=== PATIENT | female | born 1990 | race Caucasian/White ===

== ENCOUNTER 2024-08-04 05:28 | Inpatient (IN) ==
--- NOTE | 2024-07-25 11:12 | Anesthesiology Consultation ---
Date of Service July 25, 2024 Assessment & Plan (1) Encounter for pre-operative examination: - Per firmware manager on 07/25/24: No known infectious disease contacts, current infectious disease symptoms in past 10 days or COVID positive test result in the past 30 days. Chart Review Chart Review: division head initiated History Surgery Operation Date: 08/04/24 07:30 Proposed Procedures p Section (Delivery of Baby Through Abdominal Incision) - Jason Menjivar MD Operation Date: 08/08/24 07:30 Proposed Procedures p Section (Delivery of Baby Through Abdominal Incision) - Sravanthi Cuevas DO Height/Weight Height: 5 ft 1 in Weight: 72.575 kg Allergies Allergy/AdvReac Type Severity Reaction Status Date / Time No Known Allergies Allergy Verified 07/25/24 10:45 Medications Home Medications Medication Instructions Recorded Confirmed Last Taken vit 168-iron 27 mg-folic 1 cap PO QAM 08/18/23 07/25/24 09/30/23 08:00 acid 800 mcg-omega3 235 mg capsule (One-A-Day -1) Past Medical History Medical History Heartburn during History of cardiac murmur as a child "It went away - no problems with it" History of chicken pox History of hyperlipidemia Snores Past Family History Family History Grandfather (Paternal) Heart disease Mother Hx of ovarian cyst Thyroid disease Grandmother Hx of ovarian cyst Denies family history of Ovarian cancer Breast cancer Colorectal cancer Past Surgical History Surgical History History of D&C D&E x2 Hx of section PONV (postoperative nausea and vomiting) S/P ACL repair Left S/P wisdom tooth extraction Social History Smoking Status: Never smoker Do You Dip or Chew Tobacco: No Hx Alcohol Use: No Hx Substance Use: No substance use type: does not use
[2024-08-04] MEDS: LACTATED RINGER'S 1,000 ML IV SCH (05:59)
[2024-08-04] MEDS ORDERED: OXYTOCIN 10 UNITS/ML VIAL ONE (06:16)
[2024-08-04] MEDS ORDERED: PHENYLEPHRINE HCL 25 MG/250 ML NSS IV ONE (06:16)
[2024-08-04] MEDS ORDERED: KETOROLAC 30 MG/ML VIAL ONE (06:16)
[2024-08-04] MEDS ORDERED: MoRPHine SULFATE PF 1 MG/ML 10 ML AMP/VIAL ONE (06:16)
[2024-08-04] MEDS ORDERED: fentaNYL citrate PF 100 MCG/2 ML VIAL ONE (06:16)
[2024-08-04] MEDS ORDERED: ONDANSETRON INJ 2 MG/ML 2 ML VIAL ONE (06:16)
[2024-08-04] MEDS: ACETAMINOPHEN 500 MG TAB PO SCH (06:21)
[2024-08-04 06:24] LABS: Hematocrit (blood only) 37.3 % (37.0-47.0); Hemoglobin 12.8 g/dl (12.0-16.0); Mean Corpuscular Hemoglobin 29.6 pg (25.0-34.0); Mean Corpuscular Hgb Conc 34.3 g/dL (32.0-36.0); Mean Corpuscular Volume 86.3 fL (80.0-100.0); Mean Platelet Volume 10.2 fL (9.4-12.4); Platelet Count 361 K/uL (130-400); RDW Coefficient of Variation 12.8 % (11.5-14.5); RDW Standard Deviation 40.1 fL (36.4-46.3); Red Blood Count 4.32 M/uL (4.20-5.40)
[2024-08-04] MEDS ORDERED: LACTATED RINGER'S 1,000 ML IV SCH ×2 (06:45→09:26)
--- NOTE | 2024-08-04 07:27 | History & Physical Report ---
Date of Service August 04, 2024 Assessment & Plan (1) Previous delivery affecting , antepartum: Plan: 33yo at 39w 6d presents for scheduled repeat with breech presentation. (2) Supervision of normal intrauterine in multigravida: Admission and Anticipated Discharge Date Admission Date: August 04, 2024 History of Present Illness Primary Care Provider: NO PCP 33yo at 39w 6d presents for scheduled repeat with breech presentation. Prior , LTCS / we have record Desires C/S SCHEDULED FOR 08/08/[address] EMILY HORNE C/S RESCHEDULED TO 08/04/[address] CARPENTER DUE TO BREECH OB Labs: Blood Type O Positive 01/28/24 Antibody Screen NEGATIVE 01/28/24 Hgb 12.0 g/dl (12.0-16.0) 05/16/24 Hct 36.4 % (37.0-47.0) L 05/16/24 MCV 89.0 fL (80.0-100.0) 01/28/24 Plt Count 398 K/uL (130-400) 01/28/24 Rubella IgG Antibody Immune (Immune) 01/28/24 RPR Nonreactive (Nonreactive) 01/28/24 Hep Bs Antigen NON-REACTIVE (NON-REACTIVE) 01/28/24 Hepatitis C Ab (EIA) NON-REACTIVE (NON-REACTIVE) 01/28/24 HIV (1&2) Ag & Ab Conf NON-REACTIVE (NON-REACTIVE) 01/28/24 Glucose 1 Hr 50 gm 100 mg/dl (70-130) 05/16/24 OB Optional Labs: Chlamydia trachomatis RNA Not Detected (NotDetected) 01/28/24 Neisseria gonorrhoeae RNA Not Detected (NotDetected) 01/28/24 Labs Reviewed: declined genetics and carrier testing--[facility] declined afp--[facility] Allergies Allergy/AdvReac Type Severity Reaction Status Date / Time No Known Allergies Allergy Verified 08/03/24 09:08 Home Medications Medication Instructions Recorded Confirmed Type vit 168-iron 27 mg-folic 1 cap PO QAM 08/18/23 08/04/24 History acid 800 mcg-omega3 235 mg capsule (One-A-Day -1) Patient History Medical History Heartburn during History of cardiac murmur as a child "It went away - no problems with it" History of chicken pox History of hyperlipidemia Snores Surgical History History of D&C D&E x2 Hx of section PONV (postoperative nausea and vomiting) S/P ACL repair Left S/P wisdom tooth extraction Family History Grandfather (Paternal) Heart disease Mother Hx of ovarian cyst Thyroid disease Grandmother Hx of ovarian cyst Denies family history of Ovarian cancer Breast cancer Colorectal cancer Social History (Updated 01/27/24 @ 10:51 by Raven Garcia) Smoking Status: Never smoker Second Hand Exposure: No; Do You Dip or Chew Tobacco: No; Tobacco Cessation Education Requested by Patient: No Hx Alcohol Use: No Hx Substance Use: No Preferred Language: German Communication Ability: Effective Assistant Corporate Controller Required: No Beliefs That Will Affect Care: None marital status: marital status details: Siddhartha Toledo(34) [phone] Current Living Situation: Family Current Living Situation Comment: lives with spouse, daughter, 1 cat, spouse to change litter. current occupational status: employed current occupation: [employer] Other Information That Helps Us Care for You: No Feels Safe at Home: Yes Safety Concerns: Feels Safe At This Time Assistive Devices: None Physical Exam Genitourinary: OB Exam Abdomen: + breech OB Exam Monitor Tracing: + external FHT monitor used, + external uterine monitor used, + category I and + normal FHT variability; no early decelerations present, no late decelerations present and no variable decelerations Results & Data Vital Signs (Past 12 Hours) Vital Signs Temp Pulse Resp BP 08/04/24 07:07 36.4 C L 20 08/04/24 07:02 68 117/64 08/04/24 05:54 81 108/72 08/04/24 05:51 36.8 C 08/04/24 05:43 16 Coding Level of Care Code None Diagnoses Previous delivery affecting , antepartum O34.219 Supervision of normal intrauterine in multigravida in third trimester Z34.83 Trimester: third trimester (2) Supervision of normal intrauterine in multigravida Trimester: third trimester Qualified Code(s): Z34.83 - Encounter for supervision of other normal , third trimester
[2024-08-04] MEDS: ceFAZolin 2000MG 2,000 MG/15 ML SYR IV SCH (07:40)
[2024-08-04] MEDS: CITRIC ACID/SODIUM CITRATE 15 ML UDC PO SCH (07:40)
[2024-08-04] MEDS ORDERED: ePHEDrine sulfate 50 MG/5 ML SYR ONE (08:42)
[2024-08-04] MEDS ORDERED: oxyCODONE HCL IR 5 MG TAB (IMMEDIATE RELEASE) PO PRN (09:26)
[2024-08-04] MEDS ORDERED: HYDROCORTISONE ACETATE 25 MG SUPP PR PRN (09:26)
[2024-08-04] MEDS ORDERED: SENNA 8.6 MG TAB PO PRN (09:26)
[2024-08-04] MEDS ORDERED: OXYTOCIN 30 UNITS/LR 1,000 ML IV SCH (09:26)
[2024-08-04] MEDS ORDERED: DIPHTHER/TETAN/PERTUS Vaccine (Tdap, Adol/Adult) 0.5mL IM ONE (09:26)
[2024-08-04] MEDS ORDERED: ONDANSETRON INJ 2 MG/ML 2 ML VIAL IV PRN ×2 (09:26→11:51)
[2024-08-04] MEDS ORDERED: HYDROmorphone INJ 0.5 MG/0.5 ML SYR IV PRN ×2 (09:26→11:51)
[2024-08-04] MEDS ORDERED: diphenhydrAMINE 50 MG/ML VIAL IV PRN ×2 (09:26→11:51)
[2024-08-04] MEDS ORDERED: PROMETHAZINE 12.5 MG/50.5 ML BAG IV PRN (09:26)
[2024-08-04] MEDS ORDERED: CALCIUM CARBONATE 500 MG CHEWABLE TAB PO PRN (09:26)
[2024-08-04] MEDS ORDERED: BENZOCAINE 20% SPRY 85 APPLN/85 GM CAN EXT PRN (09:26)
[2024-08-04] MEDS ORDERED: MAGNESIUM HYDROXIDE SUSP 30 ML UDC PO PRN (09:26)
[2024-08-04] MEDS ORDERED: diphenhydrAMINE Capsule 25 MG CAP PO PRN (09:26)
[2024-08-04] MEDS ORDERED: LACTATED RINGER'S 500 ML IV PRN (11:51)
[2024-08-04] MEDS ORDERED: PROMETHAZINE 6.25 MG/50.25 ML BAG IV PRN (11:51)
[2024-08-04] MEDS ORDERED: NALBUPHINE HCL INJ 10 MG/ML AMP IV PRN (11:51)
[2024-08-04] MEDS ORDERED: NALOXONE HCL 0.08 MG in SYRINGE 1.8 ML IV PRN (11:51)
[2024-08-04] MEDS ORDERED: NALOXONE HCL 0.4 MG/1 ML VIAL/CARP IV PRN (11:51)
[2024-08-04] MEDS ORDERED: ACETAMINOPHEN 1,000 MG/100 ML VIAL IV PRN (11:51)
[2024-08-04] MEDS ORDERED: ePHEDrine sulfate 50 MG/ML AMP IV PRN (11:51)
[2024-08-04] MEDS ORDERED: KETOROLAC 30 MG/ML VIAL IV PRN (11:51)
[2024-08-04] MEDS ORDERED: NALOXONE HCL 1 MG in SODIUM CHLORIDE 0.9% 1,000 ML IV PRN (11:51)
--- NOTE | 2024-08-04 11:51 | Anesthesiology Progress Note ---
Date of Service August 04, 2024 Anesthesia Post Procedure Vital Signs Vital Signs: Temp Pulse Resp BP Pulse Ox 08/04/24 11:40 77 116/59 L 08/04/24 11:35 78 97 08/04/24 11:30 67 96 08/04/24 11:25 83 98 08/04/24 11:20 79 98 08/04/24 11:15 82 98 08/04/24 11:10 81 98 08/04/24 11:09 83 110/61 08/04/24 11:05 71 98 08/04/24 11:00 77 99 08/04/24 10:59 71 108/61 08/04/24 10:55 66 98 08/04/24 10:50 72 99 08/04/24 10:49 65 111/62 08/04/24 10:45 66 97 08/04/24 10:40 70 98 08/04/24 10:39 67 107/64 08/04/24 10:35 80 98 08/04/24 10:30 20 08/04/24 10:30 73 98 08/04/24 10:29 67 100/66 08/04/24 10:25 68 98 08/04/24 10:20 99 08/04/24 10:20 69 08/04/24 10:20 66 105/77 08/04/24 10:15 73 99 08/04/24 10:10 98 08/04/24 10:10 71 08/04/24 10:10 74 98/57 L 08/04/24 10:05 66 98 08/04/24 10:00 97.5 F L 20 08/04/24 10:00 97.5 F L 20 08/04/24 10:00 71 98 08/04/24 09:59 68 99/57 L 08/04/24 09:55 74 99 08/04/24 09:50 20 08/04/24 09:50 68 97 08/04/24 09:49 72 102/60 08/04/24 09:45 61 97 08/04/24 09:40 20 08/04/24 09:40 98 08/04/24 09:40 67 08/04/24 09:40 66 106/59 L 08/04/24 09:35 64 98 08/04/24 09:30 16 08/04/24 09:30 72 99 08/04/24 09:29 59 L 125/59 L 08/04/24 09:25 69 98 08/04/24 09:20 20 08/04/24 09:20 62 126/62 99 08/04/24 09:15 81 100 08/04/24 09:10 20 08/04/24 09:10 74 99 08/04/24 09:05 95 H 99 08/04/24 09:00 97.5 F L 08/04/24 09:00 58 L 110/59 L 08/04/24 07:07 97.5 F L 08/04/24 07:02 68 117/64 08/04/24 05:54 81 108/72 08/04/24 05:51 98.2 F 08/04/24 05:43 16 Pain Intensity Abdomen: Pain Intensity: 0 Transfer of Care Handoff Completed per policy Notes Mental Status: alert / awake / arousable and participated in evaluation Patient Amnestic to Procedure: Yes Nausea / Vomiting: adequately controlled Pain: adequately controlled Airway Patency, RR, SpO2: stable & adequate BP & HR: stable & adequate Hydration State: stable & adequate Neuraxial Anesthesia: was administered and sensory block is resolving Anesthetic Complications: no major complications apparent and Pt Satisfied with anesthetic care
[2024-08-04] MEDS ORDERED: MoRPHine SULFATE PF 1 MG/ML 10 ML AMP/VIAL INT SPINAL ONE (11:55)
[2024-08-04] MEDS ORDERED: SODIUM CHLORIDE 0.9% 1,000 ML IV SCH (12:00)
[2024-08-04] MEDS ORDERED: NO NARCOTICS OR SEDATIVES SCH (12:00)
[2024-08-04] MEDS ORDERED: DC INTRASPINAL MORPHINE SCH (12:00)
--- NOTE | 2024-08-04 13:05 | Operative Report ---
Post Operative Report Pre & Post Diagnosis Operation Date: 08/08/24 07:30 Pre-op diagnosis: Term , prior section, breech presentation Postop diagnosis: Term , prior section, breech presentation, status post procedure I identified the patient and participated in the time-out.: Yes Procedure Operation Date: 08/08/24 07:30 Repeat section Surgeon Jason Menjivar MD Cell Support Operator Dr. Shelley Wan Quantitative Blood Loss (QBL) See chart Findings Consistent with Post-Op Diagnosis Specimens None Description of Procedure Patient was taken the operating room after consent was ensured. Upon presentation she was properly identified. Anesthesia obtained and patient prepped and draped in normal sterile fashion. Preprocedural timeout was performed. A Pfannenstiel incision was made with a knife. This was carried down to underlying fascia with the Bovie and blunt dissection. The fascia was nicked at the midline with a knife and extended laterally with pickups and Patrick scissors. Abdominal cavity was entered bluntly and placed on stretch to provide adequate room for delivery. A low transverse uterine incision was made with a knife. Head of the was delivered through the hysterotomy followed by body and shoulders. noted to be vigorous at time of delivery and a 30 second delayed cord clamping was initiated after which the cord was double clamped and cut. Baby taken to the waiting nursery staff. Attention was turned to delivery of the placenta which delivered intact with three-vessel cord gentle cord traction. Uterus was exteriorized and several passes were made to remove any remaining membranes with a dry lap. There is noted to be an upward left-sided extension. Hysterotomy was reapproximated with 0 Vicryl continuous running lock stitch with a second imbricating layer performed. Several [id number] stitches were needed to achieve hemostasis. There is noted to be a small left-sided hematoma originating from the hysterotomy. This was watched for approximately 15 to 20 minutes total and was noted to be stable. Posterior cul-de-sac cleaned of clots and debris's. Uterus returned maternal abdomen and right left paracolic gutters cleaned of clots and debris's. Hysterotomy remained hemostatic and hematoma unchanged. Subcutaneous fascia and muscle layers inspected noted be hemostatic. Fascia was reapproximated 0 Vicryl continuous running stitch. Subcutaneous layer reapproximated 2 layers using 2-0 plain. Skin reapproximated with 3-0 Vicryl and continuous subcuticular stitch. Dermabond placed on top. Both mother and in stable condition at the completion of the case. Needle sponge and instrument counts correct at the completion of the case I attest to the content of the Intraoperative Record and any orders documented therein. Any exceptions are noted below. OB Procedure Charges 24401
[2024-08-04] MEDS: OXYTOCIN 20 UNITS/LR 1,002 ML IV SCH (13:40)
[2024-08-04] MEDS: ACETAMINOPHEN 325 MG TAB PO SCH (13:40)
[2024-08-04] MEDS: IBUPROFEN 600 MG TAB PO SCH (13:41)
[2024-08-04] MEDS: DOCUSATE SODIUM 100 MG CAP PO SCH (20:22)
[2024-08-04] MEDS: SIMETHICONE 80 MG CHEW PO SCH (20:22)
[2024-08-05 03:37] VITALS: RESP 16
[2024-08-05 07:25] LABS: Basophils # (auto) 0.05 K/uL (0.00-0.20); Basophils % (auto) 0.4 %; Eosinophils # (auto) 0.07 K/uL (0.00-0.50); Eosinophils % (auto) 0.5 %; Hematocrit (blood only) 30.4 % (37.0-47.0); Hemoglobin 10.1 g/dl (12.0-16.0); Immature Granulocytes # (auto) 0.16 K/uL (0.01-0.20); Immature Granulocytes % (auto) 1.1 %; Lymphocytes # (auto) 1.81 K/uL (1.20-3.40); Lymphocytes % (auto) 12.8 %; Mean Corpuscular Hemoglobin 29.5 pg (25.0-34.0); Mean Corpuscular Hgb Conc 33.2 g/dL (32.0-36.0); Mean Corpuscular Volume 88.9 fL (80.0-100.0); Mean Platelet Volume 10.1 fL (9.4-12.4); Monocytes % (auto) 6.4 %; Neutrophils # (auto) 11.15 K/uL (1.40-6.50); Neutrophils % (auto) 78.8 %; Platelet Count 316 K/uL (130-400); RDW Coefficient of Variation 13.4 % (11.5-14.5); RDW Standard Deviation 43.6 fL (36.4-46.3); Red Blood Count 3.42 M/uL (4.20-5.40); White Blood Count 14.14 K/ul (4.8-10.8)
--- NOTE | 2024-08-05 07:36 | Obstetrical Progress Note ---
Date of Service August 05, 2024 Assessment & Plan (1) delivery delivered: Plan: 1st POD foll [facility] for Breech with previous No active complain Vitlas: Stable( P: 78, BP: 93/60, T: AF) Encourage ambulation. Encourage feeding Discharge tomorrow Admission and Anticipated Discharge Date Admission Date: August 04, 2024 Supervising Physician Co-Signing Physician Notes Patient seen with resident and agree with the above findings and plan. Routine care Subjective 1st POD foll [facility]CS for Breech with previous No active complain Ambulation : Bathroom Gas: Not passed Bottlr Feed Mild pain Lochia: Moderate Review of Systems Review of Systems: As per HPI Physical Exam Physical Exam: General: Alert and oriented. No acute distress. CV: Regular rate and rhythm. No murmurs. Respiratory: CTA bilaterally. No rhonchi, wheezes, or crackles. No increased work of breathing. Abdomen: Positive bowel sounds. Soft, nontender, and nondistended. Uterus: Fundus firm and palpable few cm below umbilicus. Surgical scar clean and healing well. Bandage removed Lower extremities: No LE edema. No deep calf pain. Aemna's negative bilaterally. Results & Data Vital Signs (Past 12 Hours) Vital Signs Temp Pulse Resp BP Pulse Ox O2 Del Method 08/05/24 04:00 16 95 08/05/24 03:35 16 08/05/24 03:35 36.6 C 78 16 93/60 L 96 Room Air 08/05/24 02:04 19 96 08/05/24 01:00 16 96 08/05/24 00:10 16 96 08/04/24 23:12 16 96 08/04/24 23:12 36.6 C 75 16 105/65 96 Room Air 08/04/24 22:04 16 96 08/04/24 21:11 18 96 08/04/24 19:40 16 96 08/04/24 19:40 36.6 C 73 16 109/69 97 Room Air Resident Activity Tracking Resident Involvement: Resident Care Provided Care Provided: OB Delivery
[2024-08-05] MEDS: FERROUS SULFATE 325 MG TAB PO SCH (08:25)
[2024-08-05] MEDS: PRENATAL VITAMIN 1 TAB PO SCH (08:25)
[2024-08-05] MEDS: bisacodyL 5 MG TABEC PO SCH (20:26)
[2024-08-05 23:00] VITALS: O2SAT 97
--- NOTE | 2024-08-06 07:02 | Obstetrical Progress Note ---
Date of Service August 06, 2024 Assessment & Plan (1) delivery delivered: Plan: 2nd POD foll [facility] for Breech with previous No active complain Vitlas: Stable Discharge today Admission and Anticipated Discharge Date Admission Date: August 04, 2024 Supervising Physician Co-Signing Physician Notes Resident Physician Supervision Note: I interviewed and examined the patient. Discussed with Dr. Law and agree with findings and plan as documented in the note. Any exceptions or clarifications are listed here: [ ] Documented By: Gabrielle Alarocn MD, FACOG Subjective 2nd POD foll [facility] for Breech with previous No active complain Ambulation : Done Gas: passed; Passed Stool Bottle Feed Mild pain Lochia: Moderate Review of Systems Review of Systems: As per HPI Physical Exam Physical Exam: General: Alert and oriented. No acute distress. CV: Regular rate and rhythm. No murmurs. Respiratory: CTA bilaterally. No rhonchi, wheezes, or crackles. No increased work of breathing. Abdomen: Positive bowel sounds. Soft, nontender, and nondistended. Uterus: Fundus firm and palpable few cm below umbilicus. Surgical scar clean and healing well. Lower extremities: No LE edema. No deep calf pain. Amena's negative bilaterally. Results & Data Vital Signs (Past 12 Hours) Vital Signs Temp Pulse Resp BP Pulse Ox O2 Del Method 08/05/24 22:59 36.5 C 79 16 108/68 97 Room Air Resident Activity Tracking Resident Involvement: Resident Care Provided Care Provided: OB Delivery
[2024-08-06 07:16] LABS: Hemoglobin 10.2 g/dl (12.0-16.0)
[2024-08-06 08:41] VITALS: BP 106/66; PULSE 80; TEMP 97.9
[2024-08-06] MEDS ORDERED: bisacodyL 10 MG SUPP PR PRN (08:47)
[2024-08-06] MEDS ORDERED: IBUPROFEN 600 MG TAB PO PRN (13:47)
[2024-08-06] MEDS ORDERED: ACETAMINOPHEN 325 MG TAB PO PRN (13:47)
== END 2024-08-06 13:35 | disposition home or self-care (01) | DRG 788 ==
LOC: 4S1 05:28 → 4E2 12:47 → EDSTATUS 08-08 07:30